=== PATIENT | female | born 1970 | race Caucasian/White ===

== ENCOUNTER 2016-05-09 11:40 | Emergency (ER) | payer OTHER, MEDICAID ==
[2016-05-09 11:52] VITALS: RESP 16
--- NOTE | 2016-05-09 13:41 | EDPHY ---
H & P Smoking Status: Current every day smoker Time Seen by Provider: 05/09/16 13:05 HPI/ROS: CHIEF COMPLAINT: Vomiting, diarrhea, seizures HISTORY OF PRESENT ILLNESS: 45-year-old female presents to the emergency department by private vehicle complaining of multiple episodes of vomiting and diarrhea since April 26, 2016. The patient states over the last 2 weeks she has had multiple episodes of vomiting and diarrhea. She states that she finally drove herself in today because she felt so weak. She has a history of a traumatic brain injury from a few years ago. She has a history of seizure disorder. She has been taking her medications as prescribed. She does have home health that comes to see her daily. She has had 3 seizures in the last 2 weeks. Most recently the last seizure was yesterday. She describes diffuse headache and neck pain. She denies chest pain or difficulty breathing. Denies vomiting. Denies any other URI symptoms. She denies substance abuse or alcohol. REVIEW OF SYSTEMS: Constitutional: No fever, no chills. Eyes: No double or blurry vision. ENT: No sore throat. Respiratory: No cough, no shortness of breath. Cardiac: No chest pain. Gastrointestinal: Vomiting, diarrhea. No abdominal pain. Genitourinary: No dysuria. Musculoskeletal: Neck pain. No back pain. Skin: No rashes. Neurological: Headache as above (Isaura Weir) Past Medical/Surgical History: Traumatic brain injury January 2012, seizure disorder, meningioma, history of intracranial bleed, times to, orthopedic surgery (Isaura Weir) Social History: Single. She lives with her 16 and 10-year-old sons. (Isaura Weir) Physical Exam: General Appearance: Alert, no distress. Temperature 36.6, heart rate 93, respirations 16, 123/75, 95% on room air. No visible signs of trauma to her head. She is mentating normally and answering questions appropriately. Eyes: Pupils equal and round. Extraocular motions are all intact. ENT: Mouth: Mucous membranes moist. Respiratory: No wheezing, rhonchi, or rales, lungs are clear to auscultation. Cardiovascular: Regular rate and rhythm. Gastrointestinal: Abdomen is soft and nontender, no masses, no rebound or guarding, bowel sounds normal. Neurological: Alert and oriented x 3, cranial nerves II through XII grossly intact Skin: Warm and dry, no rashes. Musculoskeletal: Diffuse pain with palpation along cervical spine. No palpable crepitus or other bony abnormality. Nontender to palpate along thoracic or lumbar spine. Extremities: Full range of motion and no peripheral edema. Psychiatric: Patient is oriented X 3, there is no agitation. (Isaura Weir) Constitutional: Initial Vital Signs Temperature (C) 36.6 C 05/09/16 11:48 Heart Rate 93 05/09/16 11:48 Respiratory Rate 16 05/09/16 11:48 Blood Pressure 123/75 H 05/09/16 11:48 O2 Sat (%) 95 05/09/16 11:48 O2 Delivery Mode Room Air Allergies/Adverse Reactions: Sulfa (Sulfonamide Antibiotics) Allergy (Verified 12/10/15 16:14) Home Medications: Medication Instructions Recorded Gabapentin [Neurontin 300 MG (RX)] 900 mg PO TID 12/27/12 Ibuprofen [Motrin] 800 mg PO TID 12/27/12 LORazepam [Ativan 1 mg (RX)] 1 mg PO DAILY PRN 12/27/12 Multivitamins [Tab-A-Priti] 1 each PO DAILY 12/27/12 levETIRAcetam [Keppra 500 mg (RX)] 500 mg PO BID 12/27/12 oxyCODONE IR [Oxycodone HCl Ir] 30 mg PO Q4 PRN 12/27/12 Furosemide [Lasix 20 MG (RX)] 20 mg PO BID #30 tab 02/19/13 Clindamycin 150 mg PO Q8 7 Days 12/10/15 GABAPENTIN 12/10/15 Keppra 500 mg (*) 05/09/16 Medical Decision Making - Diagnostics Imaging: CT imaging of the brain reveals a meningioma which is stable from 2014 measuring 1.1 cm. This is reported to me by Dr. Demetrio Pierre. CT imaging of the cervical spine reveals no acute fractures however there is widening at C4-5 which is new compared with previous study from 2014. MRI of the cervical spine with contrast was ordered as recommended by the radiologist, Dr. Demetrio Pierre, which revealed dorsal dural enhancement from C3-C6 with erosive changes in enhancement C4-5. No compression deformities noted. This is reported to me by Dr. Mello. (Isaura Weir) ED Course/Re-evaluation: 45-year-old female presents to the emergency department after having multiple episodes of vomiting diarrhea over last few weeks and having seizure x3 in the last 2 weeks. Was recent seizure was yesterday. Laboratory studies reveal normal CBC and chemistries. Her Keppra level is a send out test and is pending. CT imaging of the brain reveals meningioma which is stable at 1.1 cm this was compared to previous study in 2014. The cervical CT scan reveals widening of C4- 5 which is new compared to study from 2014. They recommended MRI of her cervical spine. MRI of the cervical spine revealed no acute compression deformities however there was dorsal dural enhancement of C3 through C6 with erosive changes in enhancement at C4-5. I spoke with Dr. Miller, who was on-call for Neurosurgery, who reviewed the images himself and did not feel that any intervention was necessary. He did not appreciate the dorsal dural enhancement that was appreciated by the radiologist. He requested follow-up as an outpatient with the patient. 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 (Isaura Weir) Differential Diagnosis: Seizure including but not limited to electrolyte abnormality, alcohol withdrawal , medication noncompliance, head injury, and breakthrough seizure. Head injury including but not limited to concussion, skull fracture, intraparenchymal contusion, subarachnoid, subdural and epidural hematoma. (Isaura Weir) Other Provider: The patient was evaluated and managed by the physician admissions assistant. I have reviewed this chart and I agree with the findings and plan of care as documented , as indicated by my signature. I am the secondary supervising physician. ( Lori Joy) - Data Points Laboratory Results: Laboratory Results 05/09/16 13:18 05/09/16 13:18 05/09/16 13:18 Levetiracetam 34.4 mcg/mL (()) Departure - Departure Disposition: Home, Routine, Self-Care Clinical Impression: Gastroenteritis, Seizure disorder, History of meningioma, Cervical strain Condition: Good Instructions: Gastroenteritis (ED), Cervical Strain (ED), Epilepsy (ED) Additional Instructions: You should not drive a car until cleared by your neurologist. Continue your medications as prescribed. Return to the emergency department if you develop recurring seizure, if you develop headache, or if you feel worse in any way. Referrals: Alice Bustos MD [Primary Care Provider] - 1-2 days without fail Josse Miller MD [Medical Doctor] - As per Instructions (Neurosurgeon on-call)
[2016-05-09 13:47] LABS: % IMMATURE GRANULYOCYTES 0.2 % (0.0-1.1); ABSOLUTE IMMATURE GRANULOCYTES 0.01 10^3/uL (0.00-0.10); ADD DIFF? NO; ADD MORPH? NO; ADD SCAN? NO; ATYPICAL LYMPHOCYTE FLAG 10 (0-99); FRAGMENT RBC FLAG 0 (0-99); HEMATOCRIT 40.1 % (38.0-47.0); HEMOGLOBIN 13.3 g/dL (12.6-16.3); LEFT SHIFT FLG 0 (0-99); LIPEMIA HEMOLYSIS FLAG 80 (0-99); MEAN CELL HEMOGLOBIN 28.2 pg (27.9-34.1); MEAN CELL HEMOGLOBIN CONCENTR. 33.2 g/dL (32.4-36.7); MEAN PLATELET VOLUME 12.4 fL (8.7-11.7); PLATELET CLUMPS FLAG 0 (0-99); PLATELET COUNT 167 10^3/uL (150-400); RED BLOOD CELL COUNT 4.72 10^6/uL (4.18-5.33); RED CELL DISTRIBUTION WIDTH 12.6 % (11.5-15.2)
[2016-05-09 13:51] LABS: ANION GAP 11 mEq/L (8-16); CALCIUM 9.1 mg/dL (8.5-10.4); CARBON DIOXIDE 29 mEq/l (22-31); CHLORIDE 102 mEq/L (97-110); CREATININE 0.6 mg/dL (0.6-1.0); GLOMERULAR FILTRATION RATE > 60; GLUCOSE 83 mg/dL (70-100); POTASSIUM 3.8 mEq/L (3.5-5.2); SODIUM 142 mEq/L (134-144)
--- NOTE | 2016-05-09 14:41 | CT ---
CT Head Without Contrast History: Multiple seizures in the past 2 weeks, headache, meningioma. Comparison: MR brain of January 28, 2014 and December 25, 2012. CT head from December 25, 2012. Technique: Axial unenhanced images were obtained from the vertex through the skull base. Dose reducti on techniques were utilized. Findings: Partially calcified 1-cm parafalcine parietal meningioma has not significant changed. Campo- white differentiation is preserved. The ventricles and sulci are normal. No intracranial hemorrhage is identified. No extraaxial fluid collections are identified. There is no mass effect or evidence of infarct. No fracture is identified. Mild mucous membrane thickening is present in the paranasal s inuses. The mastoid air cells are clear. Maxillary antrostomies are noted. Impression: 1. No acute intracranial findings. If symptoms persist and clinical suspicion warrants, consider MRI. 2. Stable parafalcine meningioma. Findings discussed with Isaura Weir PA-C, today at 1452 hours.
--- NOTE | 2016-05-09 15:00 | CT ---
CT Cervical Spine Without Contrast History: Seizures, neck pain. Comparison: CT head from the same day, CT cervical spine from December 25, 2012. Technique: Multislice helical CT through the cervical spine without contrast from the skull base to T 1. Soft tissue and bone evaluation is performed. Sagittal and coronal reconstructions are obtained an d reviewed. Dose reduction techniques were utilized. Findings: Trace anterolisthesis of C3 on C4 is new since the comparison with slight increase in 3 to 4 mm anterolisthesis of C4 on C5. No definite fracture is identified. The relationship between the sk ull base and C1 is normal. Moderate degenerative change is present at the articulation of the odontoi d with the anterior arch of C1. Moderate to severe vertebral and uncovertebral spondylosis from C5 th rough C7 and moderate vertebral and uncovertebral spondylosis at C4-C5 is slightly increased. Multile priyank moderate spinal canal narrowing, most prominent from C5 through C7, appears slightly increased.. Severe right facet hypertrophy at C4-C5 is new/increased since the comparison with widening of the fa cet joint, suspicious for inflammatory arthropathy. There is new lucency in the right superior articu lar facet at C5, with additional lucency in the right pedicle and base of the spinous process at C5, new since the comparison, with apparent cortical disruption (series 5 image 87 e.g.). Mild to moderat e multilevel facet hypertrophy has increased since the comparison. Multilevel neural foraminal stenos is is present, including moderate to severe bilateral neural foraminal stenosis from C5 through C7, m ost prominent at C6-C7. The cervicothoracic junction is normal. There is no visible epidural or preve rtebral hematoma. Impression: 1. No definite acute osseous findings, with new contour irregularly of the right C4-C5 facet joint an d new lucency in the C5 posterior elements, which could be related to inflammatory arthritis but is n onspecific. Recommend MR cervical spine with and without contrast. 2. Multilevel degenerative change and spondylolisthesis with multilevel spinal narrowing and neural f oraminal stenosis. Findings discussed with Isaura Weir PA-C, today at 1452 hours. Mal Mello reviewed study and agrees with the findings and recommendations.
[2016-05-09] MEDS ORDERED: GADOBUTROL 10 ML VIAL IVP ONE (15:47)
--- NOTE | 2016-05-09 17:12 | MR ---
MRI Cervical Spine without and with contrast at 1538 hours History: Neck pain post trauma, right C5-C6 facet lucency. Seizures. Fall post seizure. Comparison: Today's CT cervical spine. Technique: Sagittal T1, T2, axial T2, and 3-D gradient echo MR sequences of the cervical spine withou t contrast. Postcontrast imaging performed with the uneventful intravenous administration of 5.5 mL G adavist contrast with sagittal and axial T1-weighted postcontrast fat-suppressed series. Findings: Reversal of the normal cervical alignment centered at the C5 level. No cervical compressi on fractures. Cerebellar tonsils are in normal position. Cervical spinal cord demonstrates normal si gnal without cord edema or myelomalacia. Thin asymmetric dorsal dural enhancement from C3 through C6. There is abnormal enhancement associated with the right C5-C6 facet region, suggesting inflammatory or infectious process. No evidence of cor d enhancement. No focal drainable abscess. C2-C3: Moderate left facet arthropathy without disk herniation or stenosis. C3-C4: Mild degenerative disk disease and moderate bilateral facet arthropathy with dorsal disk/osteo phyte complex, resulting in mild central canal stenosis, mild to moderate right neural foraminal sten osis, without left neural foraminal stenosis. C4-C5: Moderate degenerative disk disease with moderate loss of disk height, dorsal disk/osteophyte c omplex, bilateral uncovertebral osteophytes, severe right facet arthropathy with facet fluid and mild left facet arthropathy, resulting in moderate central canal stenosis, moderate to severe right neura l foraminal stenosis, without left neural foraminal stenosis. C5-C6: Severe degenerative disk disease with degenerative retrolisthesis, severe disk space narrowing , dorsal disk/osteophyte complex, bilateral uncovertebral osteophytes and mild bilateral facet arthro pollo, resulting in moderate central canal stenosis and moderate to severe bilateral neural foraminal stenosis, left worse than right. C6-C7: Moderate degenerative disk disease with dorsal disk/osteophyte complex and bilateral uncoverte bral osteophytes, resulting in mild central canal stenosis and moderate to severe bilateral neural fo raminal stenosis. C7-T1: No disk herniation or stenosis. Impression: 1. No cervical compression fractures, cord edema, or myelomalacia. 2. Moderate to severe degenerative disk disease from C4-C5 through C6-C7, with dorsal disk/osteophyte complexes, degenerative anterolisthesis at C4-C5, degenerative retrolisthesis at C5-C6 and C6-C7, an d moderate to severe bilateral facet arthropathy, resulting in moderate central canal stenosis, espec ially at C4-C5 and C5-C6, and moderate to severe bilateral neural foraminal stenosis, worse on the ri ght at C4-C5, bilaterally at C5-C6, and bilaterally at C6-C7. 3. Right C4-C5 facet erosion on CT demonstrates enhancement on MRI, with mild thin dorsal dural enhan cement from C3 through C6, suggesting inflammatory/infectious process. Consider neurosurgery consult. 4. Please see above findings at specific disk levels. Cosign: Dr. Demetrio Pierre. Findings and recommendations discussed with Emergency Department physician, Isaura Weir PA-C, at 1 630 hours today. Final report concurs with initial preliminary interpretation.
[2016-05-09 17:27] LABS: HEMATOCRIT 39.3 % (38.0-47.0)
[2016-05-09 17:51] VITALS: BP 133/80; PULSE 81; TEMP 98.6; O2SAT 97
== END 2016-05-09 17:51 | disposition home or self-care (01) ==
DX: K52.9 Noninfective gastroenteritis and colitis, unspecified (principal); G40.909 Epilepsy, unspecified, not intractable, without status epilepticus; S16.1XXA Strain of muscle, fascia and tendon at neck level, initial encounter; F17.200 Nicotine dependence, unspecified, uncomplicated; Z86.011 Personal history of benign neoplasm of the brain; X58.XXXA Exposure to other specified factors, initial encounter
CPT/HCPCS: 70450; 72125; 72156; 99285; A9585; 80177-90

== ENCOUNTER 2016-05-11 11:54 | Emergency (ER) | payer OTHER, MEDICAID ==
[2016-05-11] MEDS ORDERED: NALOXONE HCL 0.4 MG/ML INJ ONE (12:08)
[2016-05-11 12:16] LABS: % IMMATURE GRANULYOCYTES 0.3 % (0.0-1.1); ABSOLUTE IMMATURE GRANULOCYTES 0.02 10^3/uL (0.00-0.10); ADD DIFF? NO; ADD MORPH? NO; ADD SCAN? NO; ATYPICAL LYMPHOCYTE FLAG 10 (0-99); FRAGMENT RBC FLAG 0 (0-99); HEMATOCRIT 40.9 % (38.0-47.0); HEMOGLOBIN 13.3 g/dL (12.6-16.3); LEFT SHIFT FLG 0 (0-99); LIPEMIA HEMOLYSIS FLAG 80 (0-99); MEAN CELL HEMOGLOBIN 28.8 pg (27.9-34.1); MEAN CELL HEMOGLOBIN CONCENTR. 32.5 g/dL (32.4-36.7); MEAN CELL VOLUME 88.5 fL (81.5-99.8); MEAN PLATELET VOLUME 12.4 fL (8.7-11.7); PLATELET CLUMPS FLAG 0 (0-99); PLATELET COUNT 173 10^3/uL (150-400); RED BLOOD CELL COUNT 4.62 10^6/uL (4.18-5.33); RED CELL DISTRIBUTION WIDTH 12.5 % (11.5-15.2)
[2016-05-11 12:36] LABS: ANION GAP 9 mEq/L (8-16); CALCIUM 9.1 mg/dL (8.5-10.4); CARBON DIOXIDE 33 mEq/l (22-31); CHLORIDE 99 mEq/L (97-110); CREATININE 0.6 mg/dL (0.6-1.0); GLOMERULAR FILTRATION RATE > 60; GLUCOSE 109 mg/dL (70-100); POTASSIUM 3.8 mEq/L (3.5-5.2); SODIUM 141 mEq/L (134-144)
--- NOTE | 2016-05-11 12:53 | CPEKG ---
Heart Rate: 83 RR Interval: 723 P-R Interval: 156 QRSD Interval: 88 QT Interval: 384 QTC Interval: 452 P [place]: 73 QRS [place]: 76 T Wave [place]: 15 EKG Severity - NORMAL ECG - EKG Impression: SINUS RHYTHM Electronically Signed By: Maksim Lunsford 12-May-2016 11:56:27
[2016-05-11] MEDS ORDERED: NALOXONE HCL 0.4 MG/ML INJ IVP ONE (12:56)
[2016-05-11] MEDS ORDERED: NS 1,000 ML IV ONE (12:57)
--- NOTE | 2016-05-11 12:58 | EDPHY ---
H & P Stated Complaint: Lethargy, L hip pain Time Seen by Provider: 05/11/16 12:30 HPI/ROS: HPI: 45-year-old female brought to emergency department by EMS with chief concern found down at home by home health nurse. Home health nurse found her down between the couch and table. Called 911. EMS report she was alert and oriented with a arrived and denied actually falling. While in the ambulance, she was given 100 mics of fentanyl for complaints of left hip soreness at which time she became quite drowsy. Denies fever, chills, shortness of breath, chest pain, abdominal pain, nausea, vomiting. Reports that she lives with her son. Was evaluated in the emergency department 2 days ago for a vomiting and diarrheal illness. At this time, CT head and neck were negative. MRI neck was negative. Patient is a chronic pain patient who apparently takes 180 mg of morphine daily over 3 doses. ROS:10 point review of systems is negative other than as stated in HPI Source: Patient Exam Limitations: No limitations - Personal History Tetanus Vaccine Date: Unsure - Medical/Surgical History Hx Asthma: No Hx Chronic Respiratory Disease: No Hx Diabetes: No Hx Cardiac Disease: No Hx Renal Disease: No Hx Cirrhosis: No Hx Alcoholism: No Hx HIV/AIDS: No Hx Splenectomy or Spleen Trauma: No Other PMH: PMH:TBI/SEIZURE, brain bleed( cant tell which), manigeoma. PSH:sinus , 2x csection, dental, tubal, lap x 6, plate in head, and left knee replaced - Social History Smoking Status: Current every day smoker Drug Use: Other (Chronic pain medications) Additional Social History: Lives with son - Physical Exam Exam: 112/76, heart rate 89, respiratory rate 12, 91% on room air, 3 L 97% General: Awake, alert, calm, cooperative. No acute distress. Head: Normalocephalic. Atraumatic. EENT: PERRLA. 3+/3+ EOMI. No pallor or injection. Anicteric. No nystagmus. No injection. TMs intact bilaterally with normal landmarks. No rhinnorhea, nasal passages clear. Oropharynx without redness, exudates, or lesions. Tonsils 2+ bilaterally, no exudates. Neck: Supple, nontender. No lymphadenopathy. Full range of motion. No meningismus. Respiratory: Breathing unlabored. Breath sounds equal bilaterally with scattered rhonchi. CV: Chest nontender, atraumatic. Heart rate regular. No murmur, distal pulses 2+ bilaterally. Brisk cap refill all extremities. GI: Abdomen soft, nontender. Bowel sounds normoactive and positive x4 quadrants. : No suprapubic tenderness. No CVA or flank tenderness. Neuro: Alert. Oriented x 3. Speech clear. Nonfocal cranial nerves throughout. Sensation intact all extremities. Skin: Skin warm, dry, intact. No rashes, abrasions, or lacerations. Skin turgor normal. Extremities: Full range of motion in all 4 extremities. Strength 5+ all extremities. Constitutional: Initial Vital Signs Temperature (C) 37.0 C 05/11/16 11:54 Heart Rate 89 05/11/16 11:54 Respiratory Rate 12 05/11/16 11:54 Blood Pressure 112/76 05/11/16 11:54 O2 Sat (%) 91 L 05/11/16 11:54 O2 Delivery Mode Room Air O2 (L/minute) 3 Allergies/Adverse Reactions: acetaminophen [From Tylenol] Allergy (Verified 05/11/16 12:18) Sulfa (Sulfonamide Antibiotics) Allergy (Verified 12/10/15 16:14) venlafaxine HCl [From Effexor] Allergy (Verified 05/11/16 12:18) Home Medications: Medication Instructions Recorded Gabapentin [Neurontin 300 MG (RX)] 900 mg PO TID 12/27/12 Ibuprofen [Motrin] 800 mg PO TID 12/27/12 LORazepam [Ativan 1 mg (RX)] 1 mg PO DAILY PRN 12/27/12 Multivitamins [Tab-A-Priti] 1 each PO DAILY 12/27/12 levETIRAcetam [Keppra 500 mg (RX)] 500 mg PO BID 12/27/12 oxyCODONE IR [Oxycodone HCl Ir] 30 mg PO Q4 PRN 12/27/12 Furosemide [Lasix 20 MG (RX)] 20 mg PO BID #30 tab 02/19/13 Clindamycin 150 mg PO Q8 7 Days 12/10/15 GABAPENTIN 12/10/15 Keppra 500 mg (*) 05/09/16 Medical Decision Making - Diagnostics Imaging: PA and Lateral Chest History: Lethargy and flulike symptoms in a 45-year-old female; comparison PA and lateral chest February 19, 2013. Findings: The heart and mediastinal contours are normal. Pulmonary vascularity is normal. There is mild central peribronchial thickening, similar in appearance to the 2013 study. There are no alveolar opacities seen to suggest pneumonia. Impression: Mild airways disease without pneumonia. Dictated By: Rocky Perez MD ED Course/Re-evaluation: 45-year-old female brought into emergency department by EMS having been found down at home by home health nurse. When EMS arrived, she was alert and oriented and denied falling. She was given 100 mics of fentanyl by EMS and at time of arrival quite lethargic. Ultimately, she was given 0.2 mg Narcan here in ED. Afterwards, she was alert and oriented. 1430: After 0.2 mg Narcan, patient is awake, alert, oriented x 3. She remembers the events of this morning. Reports that she had a seizure, slid down the wall between the couch and a table. She denies striking her head. EKG shows sinus rhythm, rate 83, normal intervals, no axis deviation, no evidence of ischemia. She takes her seizure medication daily.Chest x-ray shows evidence of reactive airway disease, otherwise no acute changes. CBC unremarkable. Basic metabolic panel shows a CO2 of 33, glucose of 109. Patient has Removed her own IV. She Is asking to leave emergency department. 1435: Patient ambulating independently. She continues to request to leave the emergency department. She has decision making capacity. This was her 2nd ER visit in 2 days. I have advised that she follow up with primary care tomorrow promptly for recheck. she verbalizes understanding and agrees to do so. Differential Diagnosis: Differential diagnosis includes but is not limited to medication overdose, seizure, metabolic derangement, dehydration, intracranial bleed - Data Points Laboratory Results: Laboratory Results 05/11/16 12:00 05/11/16 12:00 05/11/16 05/11/16 13:05 12:00 WBC 7.78 10^3/uL (3.80-9.50) RBC 4.62 10^6/uL (4.18-5.33) Hgb 13.3 g/dL (12.6-16.3) Hct 40.9 % (38.0-47.0) MCV 88.5 fL (81.5-99.8) MCH 28.8 pg (27.9-34.1) MCHC 32.5 g/dL (32.4-36.7) RDW 12.5 % (11.5-15.2) Plt Count 173 10^3/uL (150-400) MPV 12.4 H fL (8.7-11.7) Neut % (Auto) 58.6 % (39.3-74.2) Lymph % (Auto) 33.7 % (15.0-45.0) [place] % (Auto) 5.4 % (4.5-13.0) Eos % (Auto) 1.5 % (0.6-7.6) Baso % (Auto) 0.5 % (0.3-1.7) Nucleat RBC Rel Count 0.0 % (0.0-0.2) Absolute Neuts (auto) 4.56 10^3/uL (1.70-6.50) Absolute Lymphs (auto) 2.62 10^3/uL (1.00-3.00) Absolute Monos (auto) 0.42 10^3/uL (0.30-0.80) Absolute Eos (auto) 0.12 10^3/uL (0.03-0.40) Absolute Basos (auto) 0.04 10^3/uL (0.02-0.10) Absolute Nucleated RBC 0.00 10^3/uL (0-0.01) Immature Gran % 0.3 % (0.0-1.1) Immature Gran # 0.02 10^3/uL (0.00-0.10) Sodium 141 mEq/L (134-144) Potassium 3.8 mEq/L (3.5-5.2) Chloride 99 mEq/L (97-110) Carbon Dioxide 33 H mEq/l (22-31) Anion Gap 9 mEq/L (8-16) BUN 7 mg/dL (7-23) Creatinine 0.6 mg/dL (0.6-1.0) Estimated GFR > 60 Glucose 109 H mg/dL (70-100) Calcium 9.1 mg/dL (8.5-10.4) Influenza A & B (PCR) NEGATIVE FOR FLU (NEGATIVE) Medications Given: Discontinued Medications Sodium Chloride (Ns) 1,000 mls @ 0 mls/hr IV ONCE ONE PRN Reason: Wide Open Stop: 05/11/16 12:58 Last Admin: 05/11/16 13:20 Dose: 1,000 mls Ibuprofen (Motrin) 800 mg PO EDNOW ONE Stop: 05/11/16 14:21 Last Admin: 05/11/16 14:20 Dose: 800 mg Naloxone HCl (Narcan) 0.2 mg IVP EDNOW ONE Stop: 05/11/16 12:57 Last Admin: 05/11/16 13:05 Dose: 0.2 mg Departure - Departure Disposition: Home, Routine, Self-Care Clinical Impression: Weakness, Seizure disorder Condition: Good Instructions: Weakness (ED), Epilepsy (ED) Additional Instructions: Plan: Follow up with primary care tomorrow without fail for recheck--When you call to schedule appointment, please let the office know you are an "ER follow up" appointment" Referrals: Patient,NotPresent [Unknown] - As per Instructions Alice Bustos MD [Primary Care Provider] - As per Instructions
--- NOTE | 2016-05-11 13:19 | DX ---
PA and Lateral Chest History: Lethargy and flulike symptoms in a 45-year-old female; comparison PA and lateral chest Octob er 23, 2012. Findings: The heart and mediastinal contours are normal. Pulmonary vascularity is normal. There is m ild central peribronchial thickening, similar in appearance to the 2013 study. There are no alveolar opacities seen to suggest pneumonia. Impression: Mild airways disease without pneumonia.
[2016-05-11] MEDS ORDERED: IBUPROFEN 200 MG TAB PO ONE ×2 (14:18→14:20)
[2016-05-11 15:19] VITALS: BP 108/63; PULSE 82; RESP 20; TEMP 98.6; O2SAT 95
== END 2016-05-11 15:42 | disposition home or self-care (01) ==
LOC: EDUNIT#
DX: R53.1 Weakness (principal); G40.909 Epilepsy, unspecified, not intractable, without status epilepticus; F17.200 Nicotine dependence, unspecified, uncomplicated
CPT/HCPCS: 71020; 93005; 96361; 96374; 99285; J2310